=== PATIENT | male | born 1995 | race Caucasian/White ===

== ENCOUNTER → 2020-08-15 | Outpatient (CLI) | payer OTHER | LOC: COL.RAD 06:32 | DX: K85.90 Acute pancreatitis without necrosis or infection, unspecified (principal); R19.7 Diarrhea, unspecified | CPT/HCPCS: A9537; J2805 ==

== ENCOUNTER 2020-09-03 07:57 | Day surgery (SDC) | payer OTHER ==
[2020-09-03] VITALS (8 sets, daily range): BP systolic 122–132; BP diastolic 59–76; PULSE 39–62; TEMP 97.5–98.1
[~2020-09-03] VITALS: Ht 180.3 cm; Wt 86.5 kg
[2020-09-03] MEDS ORDERED: ULTRAM 50MG TAB50 MG PO ×2 (11:12→11:13)
--- NOTE | 2020-09-03 11:45 | NUR ---
PATIENT RETURNS TO BAY 6 ACCOMPANIED BY PACU STAFF PER CART. O2 OFF. MONITORS APPLIED. VSS. PATIENT STATES DISCOMFORT IS TOLERABLE. PATIENT DENIES NAUSEA. 4 INCISION SITE X 4 CD&I. 1154 PATIENT GIVEN PEPSI AND APPLESAUCE. PATIENT CALLED AND UPDATED HER ON PATIENT STATUS.
--- NOTE | 2020-09-03 12:03 | NUR ---
VSS ON ROOM AIR. PATIENT EATS APPLE SAUCE AND DRINKS PEPSI WITHOUT PROBLEMS. PATIENT RATES DISCOMFORT 5/10 AND STATES THIS IS TOLERABLE.
--- NOTE | 2020-09-03 12:18 | NUR ---
VSS ON ROOM AIR. PATIENT DECLINES NEED FOR PAIN MEDICATION AT THIS TIME. STATES HE IS DOING FINE. WATCHING TV.
--- NOTE | 2020-09-03 12:35 | NUR ---
VSS ON ROOM AIR. PATIENT STATES DISCOMFORT IS INCREASING. DENIES NAUSEA. 1240 PATIENT GIVEN NORCO 1 TAB FOR DISCOMFORT. PATIENT GIVEN SALTINE CRACKERS AND WATER.
--- NOTE | 2020-09-03 13:10 | NUR ---
VSS ON ROOM AIR. PATIENT ABLE TO VOID. PATIENT STATES HE IS NAUSEATED. PATIENT LAYS DOWN ON CART. LIGHT LOWERED. ENCOURAGED PATIENT TO REST. PATIENT RESTING WITH EYES CLOSED AND EVEN RESPIRATIONS. HEART RATE AT BASELINE.
--- NOTE | 2020-09-03 13:15 | NUR ---
VSS ON ROOM AIR. PATIENT STATES THAT DISCOMFORT IS IMPROVING. PATIENT REQUESTED TO GO TO RESTROOM. PATIENT AMBULATED TO RESTROOM WITH STEADY GAIT. PATIENT STATES ALITTLE LIGHT HEADED. STAFF AT SIDE.
--- NOTE | 2020-09-03 13:30 | NUR ---
VSS ON ROOM AIR. PATIENT STATES THAT NAUSEA HAS IMPROVED AND THAT HE IS READY TO GO HOME. IV SITE DC'D WITH CATHETER TIP INTACT. PRESSURE AND BANDAGE APPLIED. DISCHARGE INSTRUCTS WITH FOLLOW UP APPOINTMENT MADE WERE DISCUSSED WITH PATIENT. DISCHARGE PACKET GIVEN TO PATIENT. QUESTIONS ANSWERED AND PATIENT VOICED UNDERSTANDING. ULTRAM RX IN DISCHARGE PACKET. 1335 PATIENT DISCHARGED PER WHEEL CHAIR ACCOMPANIED BY AMB RN TO PATIENT ENTRANCE. WAITING OUTSIDE IN CAR. PATIENT AMBULATED FROM WHEEL CHAIR TO CAR SEAT WITH STEADY GAIT. DRIVING.
== END 2020-09-03 13:35 | disposition home or self-care (01) ==
LOC: SDCO 07:57
DX: K81.1 Chronic cholecystitis (principal); Z20.828 Contact with and (suspected) exposure to other viral communicable diseases; F17.210 Nicotine dependence, cigarettes, uncomplicated; Z87.19 Personal history of other diseases of the digestive system
CPT/HCPCS: J0690; J1100; J1885; J2250; J2270; J2405; J2704; J2710; J3010; J7120; Q9967